=== PATIENT | female | born 1970 | race Two or more races ===

== ENCOUNTER 2019-01-05 04:05 | Emergency (ER) | payer OTHER ==
[~2019-01-05] VITALS: Ht 172.7 cm; Wt 68.0 kg
[2019-01-05] MEDS ORDERED: ADVIL100 M1 (04:18)
[2019-01-05] MEDS ORDERED: CEFADROXIL500 MG PO (07:02)
[2019-01-05] MEDS ORDERED: MEDROL8 MG PO (07:02)
[2019-01-05] MEDS ORDERED: BENADRYL50 MG PO (07:02)
== END 2019-01-05 07:12 | disposition home or self-care (01) ==
LOC: ER 04:05
DX: T63.441A Toxic effect of venom of bees, accidental (unintentional), initial encounter (principal); L29.8 Other pruritus

== ENCOUNTER 2019-06-19 08:34 | Outpatient (CLI) | payer OTHER ==
[~2019-06-19 08:34] MED LIST: ADVIL100 M1; BENADRYL50 MG PO; CEFADROXIL500 MG PO; MEDROL8 MG PO
== END 2019-06-19 08:36 | disposition home or self-care (01) ==
LOC: NUCLEAR 08:34
DX: M81.0 Age-related osteoporosis without current pathological fracture (principal); I10 Essential (primary) hypertension; M54.5 Low back pain; Z01.810 Encounter for preprocedural cardiovascular examination; E03.8 Other specified hypothyroidism; E87.8 Other disorders of electrolyte and fluid balance, not elsewhere classified; E11.51 Type 2 diabetes mellitus with diabetic peripheral angiopathy without gangrene; E55.9 Vitamin D deficiency, unspecified; E11.9 Type 2 diabetes mellitus without complications; E66.8 Other obesity; M89.8X8 Other specified disorders of bone, other site

== ENCOUNTER 2019-09-17 13:43 | Outpatient (CLI) | payer OTHER | END 2019-09-17 13:52 | disposition home or self-care (01) | LOC: MAMO-SONO 13:43 | DX: Z12.31 Encounter for screening mammogram for malignant neoplasm of breast (principal); Z87.898 Personal history of other specified conditions ==

== ENCOUNTER 2019-09-22 15:14 | Outpatient (CLI) | payer OTHER | END 2019-09-22 15:22 | disposition home or self-care (01) | LOC: SONOGRAMA 15:14 | DX: I10 Essential (primary) hypertension (principal); M54.5 Low back pain; E03.8 Other specified hypothyroidism; E78.49 Other hyperlipidemia; E55.9 Vitamin D deficiency, unspecified; M89.8X8 Other specified disorders of bone, other site; R07.1 Chest pain on breathing; R07.89 Other chest pain; N60.29 Fibroadenosis of unspecified breast; D24.2 Benign neoplasm of left breast; Z13.820 Encounter for screening for osteoporosis; Z12.31 Encounter for screening mammogram for malignant neoplasm of breast; Z87.898 Personal history of other specified conditions ==

== ENCOUNTER 2019-12-25 12:09 | Outpatient (CLI) | payer OTHER | END 2019-12-25 12:36 | disposition home or self-care (01) | LOC: TOM 12:09 | DX: J33.8 Other polyp of sinus (principal) ==

== ENCOUNTER 2021-02-14 15:48 | Outpatient (CLI) | payer OTHER | END 2021-02-14 15:59 | disposition home or self-care (01) | LOC: MAMO-SONO 15:48 | PROVIDERS: ATTEND Internal Medicine | DX: Z12.31 Encounter for screening mammogram for malignant neoplasm of breast (principal); N64.89 Other specified disorders of breast ==

== ENCOUNTER 2021-10-05 15:05 | Outpatient (CLI) | payer OTHER | END 2021-10-05 15:30 | disposition home or self-care (01) | LOC: PPH VACUNA 15:05 | PROVIDERS: ATTEND Emergency Medicine Pediatric Emergency Medicine | DX: Z23 Encounter for immunization (principal) ==

== ENCOUNTER 2022-01-10 11:37 | Outpatient (CLI) | payer OTHER | END 2022-01-10 11:50 | disposition home or self-care (01) | LOC: SONOGRAMA 11:37 | PROVIDERS: ATTEND Internal Medicine | DX: I10 Essential (primary) hypertension (principal); M54.50 Low back pain, unspecified; E03.9 Hypothyroidism, unspecified; E78.9 Disorder of lipoprotein metabolism, unspecified; N39.0 Urinary tract infection, site not specified; Z13.820 Encounter for screening for osteoporosis; Z12.31 Encounter for screening mammogram for malignant neoplasm of breast ==

== ENCOUNTER → 2022-01-12 | Outpatient (CLI) | payer OTHER | END | disposition home or self-care (01) | LOC: NUCLEAR 07:57 | PROVIDERS: ATTEND Internal Medicine | DX: I65.21 Occlusion and stenosis of right carotid artery (principal); E11.65 Type 2 diabetes mellitus with hyperglycemia ==

== ENCOUNTER 2022-05-31 11:08 | Outpatient (CLI) | payer OTHER | END 2022-05-31 11:14 | disposition home or self-care (01) | LOC: MAMO-SONO 11:08 | PROVIDERS: ATTEND Internal Medicine | DX: Z12.31 Encounter for screening mammogram for malignant neoplasm of breast (principal); N60.11 Diffuse cystic mastopathy of right breast ==

== ENCOUNTER 2022-07-24 10:08 | Emergency (ER) | payer OTHER | END 2022-07-24 12:42 | disposition home or self-care (01) | LOC: ER 10:08 | DX: M70.71 Other bursitis of hip, right hip (principal) ==

== ENCOUNTER 2023-11-11 10:48 | Outpatient (CLI) | payer OTHER ==
[~2023-11-11 10:48] MED LIST changes: +EC-NAPROSYN375 MG PO; +ORPHENADRINE C100 MG PO
== END 2023-11-11 10:52 | disposition home or self-care (01) ==
LOC: MAMO-SONO 10:48
PROVIDERS: ATTEND Urology
DX: R31.1 Benign essential microscopic hematuria (principal); Z12.31 Encounter for screening mammogram for malignant neoplasm of breast

== ENCOUNTER 2024-06-09 13:33 | Outpatient (CLI) | payer OTHER | END 2024-06-09 13:34 | disposition home or self-care (01) | LOC: NUCLEAR 13:33 | PROVIDERS: ATTEND Obstetrics & Gynecology | DX: M81.0 Age-related osteoporosis without current pathological fracture (principal) ==

== ENCOUNTER 2024-12-15 14:32 | Outpatient (CLI) | payer OTHER | END 2024-12-15 14:37 | disposition home or self-care (01) | LOC: MAMO-SONO 14:32 → SONOGRAMA 14:32 → MAMO-SONO 14:37 | PROVIDERS: ATTEND Urology | DX: R31.21 Asymptomatic microscopic hematuria (principal) ==